=== PATIENT | female | born 1930 | race Caucasian/White ===

== ENCOUNTER 2016-11-07 07:22 | Outpatient (CLI) | payer MEDICARE, MEDICAID | END 2016-11-07 07:23 | disposition home or self-care (01) | DX: I25.10 Atherosclerotic heart disease of native coronary artery without angina pectoris (principal); E78.00 Pure hypercholesterolemia, unspecified; I10 Essential (primary) hypertension ==

== ENCOUNTER 2017-01-05 14:29 | Emergency (ER) | payer MEDICARE, MEDICAID ==
[2017-01-05 14:40] VITALS: BP 189/92
--- NOTE | 2017-01-05 15:04 | ED Physician Documentation ---
History of Present Illness - Stated complaint Stated Complaint: MUSCLE PX/MED RX - Chief complaint Chief Complaint: General - History obtained from History obtained from: Patient - History of Present Illness Timing: Other (86-year-old woman with history of UT a couple of years ago, started on a statin a few weeks ago and developed significant diffuse myalgias. She stopped the statin about a week ago in the myalgias are improving but not gone. Of note she also describes rhinorrhea and sore throat at night which he thinks might be related, when I ask her if she thinks she might have a cold or allergies she is quite dismissive, "I never get those things". Of note she has a heart murmur on exam, this was discussed with her and she had no recollection of that, but did get an echocardiogram she thinks she when she was transferred to [facility] 2 years ago. It was documented on history and physical at that time, but it was /, it is louder now.) Review of Systems Constitutional: reports: Myalgias. denies: Fever, Chills, Fatigue Nose: reports: Rhinorrhea / runny nose, Congestion Throat: reports: Sore throat Cardiac: denies: Chest pain / pressure, Palpitations Respiratory: denies: Dyspnea, Cough GI: denies: Abdominal Pain, Nausea, Diarrhea PD PAST MEDICAL HISTORY - Past Medical History Cardiovascular: Hypertension, [place] Respiratory: Other Endocrine/Autoimmune: None : None HEENT: None Psych: None Musculoskeletal: None Derm: None - Past Surgical History Past Surgical History: Yes General: Cholecystectomy Cardiovascular: Coronary stent - Present Medications Home Medications: Ambulatory Orders Medication Instructions Recorded Confirmed Metoprolol Succinate 25 mg PO 01/05/17 amLODIPine [Norvasc] 5 mg PO DAILY 01/05/17 01/05/17 - Allergies Allergies/Adverse Reactions: Allergies Allergy/AdvReac Type Severity Reaction Status Date / Time "Everything" AdvReac Unknown Uncoded 01/05/17 14:36 - Social History Does the pt smoke?: No Smoking Status: Never smoker Does the pt drink ETOH?: No Does the pt have substance abuse?: No - Immunizations Immunizations are current?: Yes - POLST Patient has POLST: No PD ED PE NORMAL - Vitals Vital signs reviewed: Yes - General General: Alert and oriented X 3, No acute distress - HEENT HEENT: Pharynx benign - Neck Neck: Supple, no meningeal sign, No bony TTP - Cardiac Cardiac: RRR, Other (3-4/6 decresendo murmur, LLSB) - Respiratory Respiratory: No respiratory distress, Clear bilaterally - Abdomen Abdomen: Non tender - Extremities Extremities: No deformity, No tenderness to palpate, Normal ROM s pain, No edema , No calf tenderness / cord - Neuro Neuro: Alert and oriented X 3, Normal speech - Psych Psych: Normal mood, Normal affect Results - Vitals Vitals: Vital Signs - 24 hr 01/05/17 14:32 Temperature 36.3 C L Heart Rate 97 Respiratory 22 Rate Blood Pressure 189/92 H O2 Saturation 98 Oxygen O2 Source Room air PD MEDICAL DECISION MAKING - ED course ED course: I discussed with her that the myalgias should continue to decline now that she has stopped the statin. She has a lot of complaints about her Dr. and physicians in general not listening to her. I encouraged her to followup regarding a heart murmur which seems to be worsening. I don't have access to her prior echocardiogram today. I suspect the nasal congestion and sore throat are related URI or allergies, not the statin. Departure - Departure Disposition: Home, Self Care Clinical Impression: Myalgia, Statin intolerance, Heart murmur Condition: Good Record reviewed to determine appropriate education?: Yes Follow-Up: Chemo Ramos MD [Provider Admit Priv/Credential] - Alexa Deal MD [Provider Admit Priv/Credential] - Comments: Either followup with your current primary care physician or one of the 2 here in [place] which are listed on this form. Recheck your blood pressure at that juncture as discussed, although not too worrisome since her home blood pressures have been normal. Don't take statins anymore, at least not without a discussion of side effects, potentially changing to Crestor, it has fewer of the side effects. Depending on the results of the echocardiogram done at [facility] 2 years ago you may need further workup on your heart murmur, discuss this as well.
== END 2017-01-05 15:09 | disposition home or self-care (01) ==
LOC: ED 14:29
DX: M79.1 Myalgia (principal); T46.6X5A Adverse effect of antihyperlipidemic and antiarteriosclerotic drugs, initial encounter; R01.1 Cardiac murmur, unspecified; R09.81 Nasal congestion; J34.89 Other specified disorders of nose and nasal sinuses; J02.9 Acute pharyngitis, unspecified; I10 Essential (primary) hypertension; I25.2 Old myocardial infarction; Z95.5 Presence of coronary angioplasty implant and graft
CPT/HCPCS: 99283

== ENCOUNTER 2018-04-08 12:12 | Outpatient (CLI) | payer MEDICARE, OTHER ==
--- NOTE | 2018-04-08 14:03 | XRAY Report ---
Procedure Date: 04/08/2018 Accession Number: [id number] / [id number] Procedure: XR - Knee 3 View LT CPT Code: FULL RESULT: EXAM: Knee 3 View LT DATE: 04/08/2018 12:32 PM CLINICAL HISTORY: L KNEE PAIN COMPARISON: 05/21/2012. TECHNIQUE: 3 views. FINDINGS: Bones: Normal. No fractures or bone lesions. Joints: Interval progression of degenerative changes with progression of narrowing of the medial femoral tibial joint space compartment with development of sclerosis on the femoral and tibial side, advanced degenerative changes. There is a joint effusion. Soft Tissues: Normal. No soft tissue swelling. IMPRESSION: Interval progression of degenerative changes predominantly in the medial femoral tibial compartment, now advanced. RADIA
== END 2018-04-08 12:13 | disposition home or self-care (01) ==
LOC: DI 12:12
PROVIDERS: ATTEND Family Medicine
DX: M25.562 Pain in left knee (principal); M17.12 Unilateral primary osteoarthritis, left knee; M25.462 Effusion, left knee

== ENCOUNTER 2020-03-21 08:35 | Outpatient (CLI) | payer MEDICARE, OTHER ==
--- NOTE | 2020-03-21 10:57 | XRAY Report ---
PROCEDURE: Knee 3 View RT INDICATIONS: DJD R KNEE TECHNIQUE: 3 views of the right knee(s) were acquired. COMPARISON: Left knee radiographs 04/08/2018. FINDINGS: Bones: No fractures or dislocations. No suspicious bony lesions. Quadriceps enthesophyte. Moderate degenerative change demonstrable by joint space narrowing in the medial compartment, medial compartme nt and patellar compartment osteophytosis. Small ossicle is adjacent to the lateral femoral condyle m ay be due to prior trauma. Soft tissues: A joint effusion is present. No suspicious soft tissue calcifications. IMPRESSION: Moderate degenerative change in the right knee most pronounced in the medial compartment. Joint effusion is present. Reviewed by: Kelvin Mace MD on 03/21/2020 10:55 AM PDT Approved by: Kelvin Mace MD on 03/21/2020 10:55 AM PDT Station ID: [id number]
== END 2020-03-21 08:36 | disposition home or self-care (01) ==
LOC: DI 08:35
PROVIDERS: ATTEND Family Medicine
DX: M17.11 Unilateral primary osteoarthritis, right knee (principal)

== ENCOUNTER 2020-07-08 09:22 | Outpatient (CLI) | payer MEDICARE, OTHER | END 2020-07-08 09:23 | disposition critical access hospital (66) | LOC: EMS 09:22 | PROVIDERS: ATTEND Surgery | DX: R04.0 Epistaxis (principal) | CPT/HCPCS: A0425; A0429 ==

== ENCOUNTER 2020-07-08 09:24 | Emergency (ER) | payer MEDICARE, OTHER ==
[2020-07-08] MEDS ORDERED: OXYMETAZOLINE HCL 100 SPRAYS BOTTLE NAS STA (09:38)
[2020-07-08] MEDS ORDERED: METOPROLOL TARTRATE 50 MG TABLET PO STA (09:38)
--- NOTE | 2020-07-08 09:48 | ED Physician Documentation ---
History of Present Illness - Stated complaint Stated Complaint: NOSE BLEED - Chief complaint Chief Complaint: Heent - History obtained from History obtained from: Patient - History of Present Illness Timing: Today Pain level max: 0 Pain level now: 0 - Additonal information Additional information: 89-year-old female presents to the emergency department left-sided epistaxis this morning. Started while she was drinking coffee. Nothing makes it better or worse. Pressure applied with EMS. She was hypertensive. She states that she stopped all her antihypertensive medications approximately a year ago. She states that she was told she could do this by her middle school coach. She takes a baby aspirin every other day. She is not on any other medications at home. No blood thinners. No trauma. Review of Systems Constitutional: denies: Fever, Chills Throat: denies: Sore throat Cardiac: denies: Chest pain / pressure Respiratory: denies: Cough GI: denies: Vomiting, Diarrhea Skin: denies: Rash Musculoskeletal: denies: Neck pain, Back pain Neurologic: denies: Headache PD PAST MEDICAL HISTORY - Past Medical History Cardiovascular: Hypertension, [place] Respiratory: Other Endocrine/Autoimmune: None : None HEENT: None Psych: None Musculoskeletal: None Derm: None - Past Surgical History Past Surgical History: Yes General: Cholecystectomy Cardiovascular: Coronary stent - Present Medications Home Medications: Ambulatory Orders Medication Instructions Recorded Confirmed Metoprolol Succinate 25 mg PO 01/05/17 amLODIPine [Norvasc] 5 mg PO DAILY 01/05/17 01/05/17 - Allergies Allergies/Adverse Reactions: Allergies Allergy/AdvReac Type Severity Reaction Status Date / Time "Everything" AdvReac Unknown Uncoded 07/08/20 09:38 - Social History Does the pt smoke?: No Smoking Status: Never smoker Does the pt drink ETOH?: No Does the pt have substance abuse?: No - Immunizations Immunizations are current?: Yes - POLST Patient has POLST: No PD ED PE NORMAL - Vitals Vital signs reviewed: Yes - General General: Alert and oriented X 3, No acute distress - HEENT HEENT: Moist mucous membranes, Other (Dried blood in the left nare. No active bleeding) - Neck Neck: Supple, no meningeal sign - Cardiac Cardiac: RRR - Respiratory Respiratory: No respiratory distress, Clear bilaterally - Abdomen Abdomen: Soft, Non tender, Non distended - Derm Derm: Warm and dry - Neuro Neuro: Alert and oriented X 3 - Psych Psych: Normal mood, Normal affect Results - Vitals Vitals: Vital Signs - 24 hr 07/08/20 07/08/20 07/08/20 09:35 10:02 11:04 Temperature 36.4 C L 36.8 C Heart Rate 106 H 94 78 Respiratory 20 17 17 Rate Blood Pressure 220/100 H 194/90 H 180/76 H O2 Saturation 97 95 97 Oxygen O2 Source Room air PD MEDICAL DECISION MAKING - ED course Complexity details: re-evaluated patient, considered differential, d/w patient ED course: Epistaxis resolved in the emergency department. Given metoprolol and Afrin. No further bleeding. We will have her follow-up with her doctor for further care. Patient counseled regarding signs and symptoms for which I believe and urgent re-evaluation would be necessary. Patient with good understanding of and agreement to plan and is comfortable going home at this time This document was made in part using voice recognition software. While efforts are made to proofread this document, sound alike and grammatical errors may occur. We did discuss her elevated blood pressure, the patient states that she does not want to take any medications at home and does understand the risks of chronic hypertension including stroke, heart attack, . Departure - Departure Disposition: 01 Home, Self Care Clinical Impression: Epistaxis Hypertension Qualifiers: Hypertension type: unspecified Qualified Code(s): I10 - Essential (primary) hypertension Condition: Good Instructions: ED Nosebleed Follow-Up: Edin Almanza DO [Primary Care Provider] - Within 1 week Comments: Return if you worsen. Follow-up with your doctor for further care. If bleeding recurs, reapply the nose clamp for 15 to 20 minutes before rechecking.
[2020-07-08 11:06] VITALS: BP 180/76
== END 2020-07-08 11:18 | disposition home or self-care (01) ==
LOC: EDUNIT# → ED 09:24
DX: R04.0 Epistaxis (principal); I10 Essential (primary) hypertension; Z79.82 Long term (current) use of aspirin
CPT/HCPCS: 99283; 99284; A9270

== ENCOUNTER 2020-07-21 03:39 | Outpatient (CLI) | payer MEDICARE, OTHER | END 2020-07-21 03:40 | disposition critical access hospital (66) | LOC: EMS 03:39 | PROVIDERS: ATTEND Surgery | DX: R04.0 Epistaxis (principal); R55 Syncope and collapse | CPT/HCPCS: A0425; A0427 ==

== ENCOUNTER 2020-07-21 04:29 | Emergency (ER) | payer MEDICARE, OTHER ==
[2020-07-21] MEDS ORDERED: OXYMETAZOLINE HCL 100 SPRAYS BOTTLE NAS STA (04:37)
--- NOTE | 2020-07-21 04:40 | ED Physician Documentation ---
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 Patient states she had a nosebleed this week that resolved. Per EMS on arrival her blood pressure was low and she had a presyncopal episode so they gave her a liter of IV fluids. Her nosebleed stopped on route.Patient denies facial trauma, nose picking, upper respiratory symptoms or fevers. Denies anticoagulants or ant iplatelet meds. Review of Systems Ten Systems: 10 systems reviewed and negative Nose: reports: Epistaxis. denies: Rhinorrhea / runny nose, Congestion, Sinus pressure / pain, Foreign Body PD PAST MEDICAL HISTORY - Past Medical History Cardiovascular: Hypertension, [place] Respiratory: Other Endocrine/Autoimmune: None : None HEENT: None Psych: None Musculoskeletal: None Derm: None - Past Surgical History Past Surgical History: Yes General: Cholecystectomy Cardiovascular: Coronary stent - Allergies Allergies/Adverse Reactions: Allergies Allergy/AdvReac Type Severity Reaction Status Date / Time "Everything" AdvReac Unknown Uncoded 07/21/20 04:56 - Social History Does the pt smoke?: No Smoking Status: Never smoker Does the pt drink ETOH?: No Does the pt have substance abuse?: No - Immunizations Immunizations are current?: Yes Immunizations: No immun - POLST Patient has POLST: No PD ED PE NORMAL - Vitals Vital signs reviewed: Yes - General General: Alert and oriented X 3 - HEENT HEENT: Atraumatic, PERRL, EOMI, Other (BL dried blood in nares) - Neck Neck: Supple, no meningeal sign - Cardiac Cardiac: RRR - Respiratory Respiratory: No respiratory distress, Clear bilaterally - Abdomen Abdomen: Normal bowel sounds, Non tender, Non distended - Female Female : Deferred - Rectal Rectal: Deferred - Back Back: No spinal TTP - Derm Derm: Normal color - Extremities Extremities: No edema - Neuro Neuro: Alert and oriented X 3 - Psych Psych: Normal mood, Normal affect Results - Vitals Vitals: Vital Signs - 24 hr 07/21/20 07/21/20 07/21/20 04:36 04:40 05:06 Temperature 35.7 C L 35.7 C L 35.8 C L Heart Rate 98 98 72 Respiratory 16 16 18 Rate Blood Pressure 138/59 H 138/59 H 144/67 H O2 Saturation 95 95 96 Oxygen O2 Source Room air PD MEDICAL DECISION MAKING - ED course Complexity details: re-evaluated patient, d/w patient ED course: 89-year-old woman presents with epistaxis that resolved with direct pressure and oxymetazoline spray. Patient is asymptomatic at this time. Strict return precautions given. Education about epistaxis given. Follow-up with primary do ctor. Departure - Departure Disposition: 01 Home, Self Care Clinical Impression: Epistaxis Condition: Good Instructions: Nosebleed Comments: You have been seen in the emergency department for a nosebleed. Gently when blowing her nose for the next couple days. If you experience another nosebleed then pinch at the bridge of the nose firmly and lean forward, holding pressure for at least 15 minutes. Set a timer on your clock and make sure that you keep pressure on for the entire 15 minutes. If you take pressure off of your nose then restart the clock. If you are still experiencing nosebleed after this time then you should return for further evaluation.Return for any new or worsening symptoms.
[2020-07-21 05:34] VITALS: BP 144/68
== END 2020-07-21 05:42 | disposition home or self-care (01) ==
LOC: EDUNIT# → ED 04:29
DX: R04.0 Epistaxis (principal); I10 Essential (primary) hypertension
CPT/HCPCS: 99283; 99284; A9270

== ENCOUNTER 2020-08-08 12:46 | Outpatient (CLI) | payer MEDICARE, OTHER ==
--- NOTE | 2020-08-08 16:57 | DEXA Report ---
PROCEDURE: Dexa Spine and/or Hip INDICATIONS: SCREENING FOR OSTEOPOROSIS, POSTMENOPAUSAL TECHNIQUE: Dual energy x-ray absorptiometry (DXA) was performed on a [employer]. Regions measur ed are the AP Spine, femoral neck, and if needed forearm. COMPARISON: None. 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 Patients with diagnosis of osteoporosis or osteopenia should have regular bone mineral density assess ment. For those eligible for Medicare, routine testing is allowed once every 2 years. Testing frequ ency can be increased for patients who have rapidly progressing disease or for those who are receivin g medical therapy to restore bone mass. Reviewed by: Lili Bernard MD on 08/08/2020 4:56 PM PST Approved by: Lili Bernard MD on 08/08/2020 4:56 PM PST Station ID: [id number]
== END 2020-08-08 12:47 | disposition home or self-care (01) ==
LOC: DI 12:46
PROVIDERS: ATTEND Family Medicine
DX: M81.0 Age-related osteoporosis without current pathological fracture (principal); N95.8 Other specified menopausal and perimenopausal disorders